=== PATIENT | female | born 1995 | race Two or more races ===

== ENCOUNTER 2024-11-30 10:41 | Emergency (ER) | payer MEDICAID, SELFPAY ==
[2024-11-30 10:42] VITALS: BMI 51.0
[2024-11-30 11:18] VITALS: BP 117/80; PULSE 70; RESP 17; TEMP 37.1; O2SAT 98
--- NOTE | 2024-11-30 12:12 | EDNOTE_ITS ---
<Statement entered by Nikia Caballero MD - 12/01/24 07:10> As co-signing physician, I was present and available for consult prn. I concur with the plan and care as documented by the midlevel provider. Upper Extremity Injury RME/HPI General Chief Complaint: Hand/Wrist Problems Stated Complaint: LAC TO RIGHT HAND WITH GLASS Time Seen by Provider: 11/30/24 11:36 Source: patient Arrival date/time: 11/30/24 10:41 Mode of arrival: ambulatory Limitations: no limitations RME / HPI RME / HPI narrative: While pounding on a window, the window broke, causing a laceration to the right wrist medial aspect of the right hand. complaint: injury to: left Onset (ago): hour(s) Other Extremity Injury: Right: wrist Other injuries: none Severity scale (1-10): 4 Related Data Previous Rx's ?Medication ?Instructions ?Recorded hydrocodone 5 mg-acetaminophen 325 1 tab PO TID #14 ta bs 07/12/19 mg tablet ibuprofen 600 mg tablet 600 mg PO QID pain #30 tabs 07/12/19 ondansetron 4 mg disintegrating 4 mg PO Q6H nausea #30 tabs 07/12/19 tablet cyclobenzaprine 10 mg tablet 10 mg PO HS PRN muscle sp asm #14 02/24/24 tabs gabapentin 100 mg capsule 100 mg PO TID #20 caps 02/23 ibuprofen 800 mg tablet (IBU) 800 mg PO Q8H #20 tabs 1 Allergies Allergy/AdvReac Type Severity Reaction Status Date / Time amoxicillin Allergy Intermediate Hives Verified 11/30/24 10:44 Penicillins Allergy Intermediate Hives Verified 11/30/24 10:44 Review of Systems Constitutional Constitutional: Reports system reviewed and no additional complaints, except as documented Eyes Eyes: Reports system reviewed and no additional complaints, except as documented, Denies dry eyes, Denies exophthalmos and Reports floaters Cardiovascular Cardiovascular: Denies chest pain with activity and Denies claudication ED Exam Narrative Physical exam: The right wrist has a superficial laceration with a skin tear at the medial aspect. There is no apparent foreign body seen. Patient continues to have full range of motion of the wrist as well as all digits of the right hand. Neurovascular is intact and there is no apparent neurofocal deficit present. General Limitations: Present no limitations General appearance: Present alert and in no apparent distress Head Head exam: Present atraumatic Eye Eye exam: Present normal appearance and EOMI ENT ENT exam: Present normal exam, normal oropharynx and mucous membranes moist Neck Neck exam: Present normal inspection, full ROM and trachea midline Chest Chest inspection: Present normal inspection and symmetric chest wall rise Extremities Exam Extremities exam: Present normal inspection and full ROM Back Exam Back exam: Present normal inspection and full ROM Neurological Exam Neurological exam: Present alert and oriented X3 Psychiatric Psychiatric exam: Present normal affect and normal mood Skin Skin exam: Present warm, normal color and other (There is a stellate laceration as described above.) Course Course Course Narrative: Patient will be sutured and dressed and then discharged in no apparent distress Quality Measures none Vital Signs Vital signs: Vital Signs Temperature 98.7 F 11/30/24 11:18 Pulse Rate 70 11/30/24 11:18 Respiratory Rate 17 11/30/24 11:18 Blood Pressure 117/80 11/30/24 11:18 Pulse Oximetry (%) 98 11/30/24 11:18 Oxygen Delivery Method Room Air 11/30/24 11:18 PROCEDURES: Laceration Laceration 1: Site: hand (RIGHT) Description: stellate Local Anesthetic: lidocaine 1% Amount of anesthesia used (mL): 10 Pre-repair: wound explored and irrigated extensively Skin layer closed with: nylon Suture size (cm): 5-0 Number of sutures: 4 Technique: simple, interrupted Extremity Injury MDM Narrative MDM Narrative:: Patient will have her laceration dressed and then the patient will be sent home in no apparent distress. Patient is to have a 2-day wound check and the sutures come out in 10 days. If signs of infection patient is to return here or to primary care physician. Patient data External records reviewed:: Other (specify) (NA) Clinical information provided by:: patient Social determinants that could affect healthcare access:: none Patient has the following chronic illnesses:: NA How is presenting disease/condition affected by chronic disease/condition?: no chronic disease (NA) Evaluation data The following diagnostics were reviewed and interpreted by me:: other (specify) (NA) Lab and/or radiology exams considered but not ordered:: NA Interpretation Summary: NA Medications / Prescriptions Medications or Prescriptions considered but not ordered:: NA Medication administrations:: NA Consultations Consultation(s) initiated? (list below): No Consultation #1 (Physician, Specialty, Details): NA Diagnosis Upper Extremity Injury Differential Diagnosis: fracture of wrist and dislocation of finger Most likely diagnosis given after review of the tests above:: NA Admission Indicated Admission indicated?: not indicated Explain why admission is indicated or not indicated:: NA Admission Request Was there a request for admission?: No Admission Attestation Admission request attestation: NA Disposition Plan Disposition Plan: Discharge Discharge Attestation Discharge Attestation: The patient and all family members were given an opportunity to ask questions and understood the discharge instructions. Discharge instructions specifically effects, indications for sooner follow up or return to the emergency department, and the expected course of current diagnosis. Patient condition: Stable Discharge Plan Plan Patient Disposition: HOME (Self Care) Discharge Disposition comment: Patient is discharged in no apparent distress Patient condition on transfer: Stable Prescriptions/Referrals Prescriptions/Med Rec: No Action ibuprofen 600 mg tablet 600 mg PO QID Qty: 30 0RF ondansetron 4 mg tablet,disintegrating 4 mg PO Q6H Qty: 30 0RF hydrocodone-acetaminophen 5-325 mg tablet 1 tab PO TID MDD 3 Qty: 14 0RF ibuprofen [IBU] 800 mg tablet 800 mg PO Q8H Qty: 20 0RF cyclobenzaprine 10 mg tablet 10 mg PO HS PRN (Reason: muscle spasm) Qty: 14 0RF gabapentin 100 mg capsule 100 mg PO TID Qty: 20 0RF Problem List Clinical Impression: Laceration of left wrist Impression comment: Laceration wrist Patient/Caregiver Discharge Instructions Discharge Activity: activity as tolerated Print Language: Urdu Stand Alone Forms: Heidi Award Info., Patient Portal Info Letter PA/PLYWOOD MATCHER Supervising Physician PA/PLYWOOD MATCHER Supervising Physician: ISS[facility]
[2024-11-30] MEDS: DIPHTH,PERTUSS(ACELL),TET VAC 0.5 ML SYR- ADULT IMi (13:08)
== END 2024-11-30 13:21 | disposition home or self-care (01) ==
LOC: SERX 12:47
PROVIDERS: Emergency Provider Emergency Medicine; PCP Family Medicine
DX: S61.512A Laceration without foreign body of left wrist, initial encounter (principal); W25.XXXA Contact with sharp glass, initial encounter; Z23 Encounter for immunization
CPT/HCPCS: 12002; 90471; 90715; 99283